=== PATIENT | male | born 1965 | race African-American/Black ===

== ENCOUNTER 2024-07-31 10:50 | Outpatient (CLI) | payer OTHER, SELFPAY ==
--- NOTE | ~2024-07-31 | US_ITS ---
EXAM: RENAL ULTRASOUND HISTORY: R79.89 - Other specified abnormal findings of blood chemistry COMPARISON: Reference is made to a CT examination of the abdomen and pelvis FINDINGS: RIGHT KIDNEY: 8.7 x 4.6 x 4.5 cm. The parenchyma of the right kidney is increased in echogenicity. No hydronephrosis or bulky renal calculi. LEFT KIDNEY: 9.3 x 6.6 x 4.8 cm No hydronephrosis or renal calculi. The lower pole calcification seen on previous CT is not present on the submitted images. The parenchyma of the left kidney is increased in echogenicity. BLADDER: Unremarkable IMPRESSION: No hydronephrosis or renal calculi. Findings suggesting medical renal disease. Reviewed, dictated and finalized at location A.
== END 2024-07-31 10:51 | disposition home or self-care (01) ==
LOC: MICIMG 10:51
PROVIDERS: PCP Family Medicine; Visit Provider Student in an Organized Health Care Education/Training Program
DX: R79.89 Other specified abnormal findings of blood chemistry (principal)
CPT/HCPCS: 76775

== ENCOUNTER 2024-10-29 11:56 | Emergency (ER) | payer OTHER, SELFPAY ==
--- NOTE | ~2024-10-29 | CT_ITS ---
EXAMINATION: CT brain wo con DATE: 10/29/2024 13:52 INDICATION: Headache TECHNIQUE: Computed tomography (CT) of the head was performed without intravenous contrast. Sagittal and coronal reconstructions were performed. The mA was adjusted according to patient size. Iterative reconstruction technique was employed. The dose-length product was 605.33 mGy-cm. COMPARISON: None FINDINGS: No acute intracranial hemorrhage, acute infarction or abnormal extra axial fluid collection. Ventricl es are normal and symmetric. No mass/mass effect. Moderate mucosal thickening and dependently layerin g mucus in the bilateral maxillary and right sphenoid sinuses. Additional mild mucoperiosteal thicken ing the bilateral ethmoid sinuses. The orbits and mastoid air cells are normal. IMPRESSION: 1. Normal brain. No acute intracranial process. 2. The callosal thickening in dependent layering mucus in the paranasal sinuses which can be seen wit h acute sinusitis. Reviewed, dictated and finalized at location A. RONMENTAL DIRECTOR IMPRESSION: 1. Normal brain. No acute intracranial process. 2. The callosal thickening in dependent layering mucus in the paranasal sinuses which can be seen with acute sinusitis.
[2024-10-29 12:24] VITALS: BP 153/80; PULSE 75; RESP 16; TEMP 36.7; O2SAT 99
[2024-10-29 13:00] VITALS: BP 155/90; PULSE 66; RESP 16; O2SAT 98
[2024-10-29 13:21] LABS: Basophils Percent Auto 0.5 % (0.2-1.2); Eosinophils Absolute Auto 0.2 K/mm3 (0-0.3); Eosinophils Percent Auto 2.9 % (0-4.4); Hemoglobin 16.1 g/dL (14.0-18.0); Immature Granulocyte Absolute 0.01 K/mm3 (0.00-0.031); Immature Granulocyte Percent A 0.2 % (0-0.5); Lymphocytes Percent Auto 35.1 % (18.3-44.2); Mean Corpuscular HGB Conc 32.9 g/dl (32-36); Mean Corpuscular Hemoglobin 29.3 pg (26-34); Mean Corpuscular Volume 89.1 fl (80-100); Mean Platelet Volume 8.8 fl (7.4-10.4); Monocytes Absolute Auto 0.6 K/mm3 (0.1-0.6); Monocytes Percent Auto 9.8 % (2.6-8.5); Neutrophils Absolute Auto 3.4 K/mm3 (1.3-6.7); Neutrophils Percent Auto 51.5 % (45.5-73.1); Platelet Count Result 362 k/mm3 (150-375); Red Cell Distribution Width 12.8 % (11.5-14.5); White Blood Count 6.6 K/mm3 (4.5-10.0)
[2024-10-29 13:32] LABS: Alanine Aminotransferase 108 U/L (6-50); Albumin Level 3.9 g/dL (3.5-5.1); Alkaline Phosphatase 161 U/L (38-126); Anion Gap 8 mmol/L (4-12); Aspartate Amino Transferase 62 U/L (17-59); Bilirubin,Total 0.6 mg/dL (0.2-1.3); Blood Urea Nitrogen 12 mg/dL (9-20); Calcium 8.9 mg/dL (8.4-10.2); Carbon Dioxide 28 mmol/L (22-30); Chloride 103 mmol/L (98-107); Estimated CRCL calculation 56 ml/min; Estimated Glomerular Filt Rate > 60; Glucose 105 mg/dL (65-110); Magnesium 1.9 mg/dL (1.6-2.3); Potassium 4.5 mmol/L (3.4-5.0); Sodium 139 mmol/L (137-145)
[2024-10-29 13:40] LABS: Prothrombin Time 13.1 Seconds (11.1-14.7)
[2024-10-29 13:41] LABS: Partial Thromboplastin Time 27.1 Seconds (22.3-36.8)
[2024-10-29 14:05] LABS: Thyroid Stimulating Hormone Reflex 0.412 uIU/mL (0.465-4.68)
--- NOTE | 2024-10-29 14:11 | ED_ITS ---
HPI - General Adult General Chief complaint: Unspecified Stated complaint: Fever, left hand swelling, headache today Time Seen by Provider: 10/29/24 12:43 History of Present Illness HPI narrative: 58-year-old male present to the emergency department for evaluation for suspected allergic reaction versus adverse reaction to to medications. Patient was started on a Z-Charlie and amlodipine. patient reports this morning he had 2 episodes of right-sided headache that did spontaneously resolve. Patient states he was also having some swelling of his hands bilaterally. Patient did report some left-handed weakness but any acidity, patient denies any other numbness or weakness. Patient denies any speech changes. Patient states all symptoms have resolved other than the hand swelling. Patient denies any chest pain or shortness of breath. Patient was well-appearing at time of evaluation. Patient denies a significant complaints and was enquiring how long his stay would have to be here. Related Data Allergies Allergy/AdvReac Type Severity Reaction Status Date / Time No Known Allergies Allergy Unverified 10/27/24 16:03 Review of Systems 2 Review of Systems: All systems reviewed & are unremarkable except as noted in HPI and below PMFSH Past Medical History Medical History (Updated 10/29/24 @ 14:17 by Harvey Lynne MD) CKD (chronic kidney disease), stage III Hypertensive CKD (chronic kidney disease) Wellness examination Other urogenital candidiasis Ureteral stone Thoracogenic scoliosis of thoracic region Sprain of groin Scrotum pain Sacroiliitis Pain in unspecified limb LLQ abdominal mass Left-sided low back pain without sciatica Elevated blood pressure reading without diagnosis of hypertension Lipid screening Candidiasis of genitalia Family History Family History Mother Family history of anemia Grandparent Diabetes mellitus, Onset Age: 69 Other Hypertension Social History Social History Social History: Smoking status: Never smoker Second hand tobacco smoke exposure: No Alcohol intake: never Substance use: never Substance use type: does not use Lack of Transportation: No Lack of Food: Never True Current Housing: I Have Housing Concerned About Future Housing: No Difficulty Paying Gas/Electric Bills: No Difficulty Paying for Meds: No Currently Unemployed: YES Education: Don't Know Difficulty w/ Childcare or Family Care: No Living arrangements: with family Occupation/Education: retired Gender identity (if verbalized by the patient): Male Sexual Orientation (if Verbalized by the Patient): Straight or Heterosexual Exam 2 Narrative: APPEARANCE: Well appearing, no pain, no distress, well-nourished. HEAD: normocephalic, atraumatic. EYES: PERRLA/EOMI, conjunctivae clear. NOSE: Normal no drainage EARS:TMS clear with good light reflex. THROAT: Pharynx clear, no exudate. NECK: Supple. No adenopathy, no masses. RESPIRATORY: Airway patent, respirations nonlabored. Clear to auscultation bilaterally, no rales, rhonchi, wheezing. CARDIOVASCULAR: Regular rate and rhythm without murmurs rubs or gallops. ABDOMINAL: Soft, nontender, nondistended, normal bowel sounds MUSCULOSKELETAL: Moves all extremities. Strength/ROM intact, No edema, No calf tenderness. NEURO: Alert. Grossly intact no focal neuro deficit SKIN: No significant swelling of hands bilaterallyPSYCHIATRIC: Normal affect/mood. Course Vital Signs Vital signs: Vital Signs Temperature 98.1 F 10/29/24 12:24 Pulse Rate 75 10/29/24 12:24 Respiratory Rate 16 10/29/24 12:24 Blood Pressure 153/80 H 10/29/24 12:24 Pulse Oximetry 99 10/29/24 12:24 Temperature 98.1 F 10/29/24 12:24 Pulse Rate 83 10/29/24 14:25 Respiratory Rate 16 10/29/24 14:25 Blood Pressure 156/91 H 10/29/24 14:25 Pulse Oximetry 98 10/29/24 14:25 Oxygen Delivery Room Air 10/29/24 13:00 Medical Decision Making [facility] Narrative Medical decision making narrative: 58-year-old male presents to the emergency department for evaluation for possible adverse reaction versus allergic reaction to his medications. Patient is currently afebrile with no leukocytosis and hemoglobin of 16.1 patient has no acute abnormalities on his CMP other than mildly elevated AST ALT and alk-phos. TSH was 0.412. Head CT was negative for any acute intracranial abnormality. Patient is at his baseline. Patient will be advised to hold those medications due to suspected adverse reactions. Patient was encouraged close follow-up with primary care physician for additional blood pressure medications. Differential Diagnosis Differential Diagnosis: Allergic reaction, adverse reaction, hypertension, CVA Vital Signs Vital Signs: Vital Signs Temperature 98.1 F 10/29/24 12:24 Pulse Rate 75 10/29/24 12:24 Respiratory Rate 16 10/29/24 12:24 Blood Pressure 153/80 H 10/29/24 12:24 Pulse Oximetry 99 10/29/24 12:24 Temperature 98.1 F 10/29/24 12:24 Pulse Rate 83 10/29/24 14:25 Respiratory Rate 16 10/29/24 14:25 Blood Pressure 156/91 H 10/29/24 14:25 Pulse Oximetry 98 10/29/24 14:25 Oxygen Delivery Room Air 10/29/24 13:00 Lab Data Lab results reviewed: Yes I reviewed the patient's lab results. 10/29/24 13:14 10/29/24 13:14 Labs: Lab Results 10/29/24 Range/Units 13:14 WBC 6.6 (4.5-10.0) K/mm3 RBC 5.50 (4.6-6.20) M/mm3 Hgb 16.1 (14.0-18.0) g/dL Hct 49.0 (42.0-52.0) % MCV 89.1 (80-100) fl MCH 29.3 (26-34) pg MCHC 32.9 (32-36) g/dl RDW 12.8 (11.5-14.5) % Plt Count 362 (150-375) k/mm3 MPV 8.8 (7.4-10.4) fl Immature Gran % (Auto) 0.2 (0-0.5) % Neut % (Auto) 51.5 (45.5-73.1) % Lymph % (Auto) 35.1 (18.3-44.2) % [place] % (Auto) 9.8 H (2.6-8.5) % Eos % (Auto) 2.9 (0-4.4) % Baso % (Auto) 0.5 (0.2-1.2) % Lymph # (Auto) 2.30 (0.9-3.2) K/mm3 [place] # (Auto) 0.6 (0.1-0.6) K/mm3 Eos # (Auto) 0.2 (0-0.3) K/mm3 Baso # (Auto) 0.0 (0.0-0.1) K/mm3 Abs Immat Gran (auto) 0.01 (0.00-0.031) K/mm3 Absolute Neuts (auto) 3.4 (1.3-6.7) K/mm3 Absolute Nucleated RBC 0.000 (0.0-0.012) K/mm3 Nucleated RBC % 0.0 (0.0-0.2) % PT 13.1 (11.1-14.7) Seconds INR 1.0 APTT 27.1 (22.3-36.8) Seconds Sodium 139 (137-145) mmol/L Potassium 4.5 (3.4-5.0) mmol/L Chloride 103 (98-107) mmol/L Carbon Dioxide 28 (22-30) mmol/L Anion Gap 8 (4-12) mmol/L BUN 12 (9-20) mg/dL Creatinine 1.30 (0.7-1.3) mg/dL Estim Creat Clear Calc 56 ml/min Estimated GFR > 60 (59 - ) Glucose 105 (65-110) mg/dL Calcium 8.9 (8.4-10.2) mg/dL Magnesium 1.9 (1.6-2.3) mg/dL Total Bilirubin 0.6 (0.2-1.3) mg/dL AST 62 H (17-59) U/L ALT 108 H (6-50) U/L Alkaline Phosphatase 161 H (38-126) U/L Total Protein 7.0 (6.3-8.2) g/dL Albumin 3.9 (3.5-5.1) g/dL TSH (Reflex) 0.412 L (0.465-4.68) uIU/mL Free T4 0.99 (0.78-2.19) ng/dL Total T3 1.73 H (0.97-1.69) NG/ML Imaging Data Radiologist's impression: Impressions Head CT 10/29/24 13:59 IMPRESSION: 1. Normal brain. No acute intracranial process. 2. The callosal thickening in dependent layering mucus in the paranasal sinuses which can be seen with acute sinusitis. Discharge Plan Discharge Clinical Impression: Adverse drug reaction Patient Disposition: Home, Self-Care Condition: Stable Instructions: Antibiotic Form, General Allergic Reaction (ED) Additional Instructions: Stop taking the amlodipine and Z-Charlie. Have close follow-up with primary care physician. If you have any worsening symptoms then please call or return to the emergency department. Patient Language: Guamanian Prescriptions: No Action azithromycin 250 mg tablet See Rx Instructions PO .COMPLEX 5 Days Qty: 6 0RF Rx Instructions: take 500 mg today (day 1), then 250 mg for 4 days (days 2-5) PO amlodipine 5 mg tablet 5 mg PO DAILY Qty: 90 1RF Follow-up/Referrals: Rohan Gruber MD [Primary Care Provider] -
[2024-10-29 14:25] VITALS: BP 156/91; PULSE 83; RESP 16; O2SAT 98
[2024-10-29 16:38] LABS: Free T4 Free Thyroxine Reflex 0.99 ng/dL (0.78-2.19)
[2024-10-29 18:14] LABS: Total Triiodothyronine (T3) 1.73 NG/ML (0.97-1.69)
--- OUTSIDE RECORDS SUMMARY | 2024-10-31 00:10 | XMS_ITS | Referral Summary ---
Author Organization [facility] Address [address] [place] [address] Care Team Providers Care Oil Well Cable Tool Operator Name Role Phone Tayla Holt MD Primary Care Provider Carlin aleman Source Comments [facility],non-owned Affiliates and Associated Physician Practices is amultiple site organization consisting of ambulatory clinics and hospital sitesin [place], [place], [place] and [place]. This disclosure is being madepursuant to the Care Everywhere program and may not contain all information available regarding this patient. Last updated 18.[facility] Allergies No known active allergies Medications * Be aware that medications may not be up to date on this document. Alwaysverify current medications with the patient. Medication Sig Dispensed Refills Start Date End Date Status cyclobenzaprine (FLEXERIL) 10 MG tablet Take 1 Tab by mouth 3 times daily as needed for Muscle Spasms 10 Tab 0 10/04/2015 Active hydrocodone-acetaminop hen (NORCO) 5-325 MG tablet Take 1 Tab by mouth every 4 hours as needed for Pain 20 Tab 0 10/04/2015 Active Social History Tobacco Use Types Packs/Day Years Used Date Smoking Tobacco: Never Assessed Sex and Gender Information Value Date Recorded Sex Assigned at Not on file Gender Identity Not on file Sexual Orientation Not on file Last Filed Vital Signs Vital Sign Reading Time Taken Comments Blood Pressure 124/66 10/04/2015 9:35 PM ETL DATA ARCHITECT Pulse 77 10/04/2015 6:12 PM ETL DATA ARCHITECT Temperature 36.9 ??C (98.4 ??F) 10/04/2015 6:12 PM CS T Respiratory Rate 17 10/04/2015 6:12 PM ETL DATA ARCHITECT Oxygen Saturation 95% 10/04/2015 9:36 PM ETL DATA ARCHITECT Inhaled Oxygen Concentration - - Weight 79.4 kg (175 lb) 10/04/2015 6:12 PM ETL DATA ARCHITECT Height 165.1 cm (5' 5 ) 10/04/2015 6:12 PM ETL DATA ARCHITECT Body Mass Index 29.12 10/04/2015 6:12 PM ETL DATA ARCHITECT Plan of Treatment Not on file Care Teams Oil Well Cable Tool Operator Relationship Specialty Start Date End Date Tayla Holt MD [address] [place] [address] PCP - General Family Medicine 10/04/15
--- OUTSIDE RECORDS SUMMARY | 2024-10-31 00:10 | XMS_ITS | Patient Health Summary ---
Author Organization [facility] Address [address] [place] [address] Care Team Providers Care Seam Sewer Name Role Phone Tayla Holt MD Primary Care Provider Carlin aleman Note from [facility],non-owned Affiliates and Associated Physician Practices is amultiple site organization consisting of ambulatory clinics and hospital sitesin [place], [place], [place] and [place]. This disclosure is being madepursuant to the Care Everywhere program and may not contain all information available regarding this patient. Last updated 18.[facility] Allergies No known active allergies Medications * Be aware that medications may not be up to date on this document. Alwaysverify current medications with the patient. * cyclobenzaprine (FLEXERIL) 10 MG tablet(Started 10/04/2015) Take 1 Tab by mouth 3 times daily as needed for Muscle Spasms * hydrocodone-acetaminophen (NORCO) 5-325 MG tablet(Started 10/04/2015) Take 1 Tab by mouth every 4 hours as needed for Pain Social History Tobacco Use Types Packs/Day Years Used Date Smoking Tobacco: Never Assessed Sex and Gender Information Value Date Recorded Sex Assigned at Not on file Gender Identity Not on file Sexual Orientation Not on file Last Filed Vital Signs Vital Sign Reading Time Taken Comments Blood Pressure 124/66 10/04/2015 9:35 PM EEG TECHNICIAN Pulse 77 10/04/2015 6:12 PM EEG TECHNICIAN Temperature 36.9 ??C (98.4 ??F) 10/04/2015 6:12 PM CS T Respiratory Rate 17 10/04/2015 6:12 PM EEG TECHNICIAN Oxygen Saturation 95% 10/04/2015 9:36 PM EEG TECHNICIAN Inhaled Oxygen Concentration - - Weight 79.4 kg (175 lb) 10/04/2015 6:12 PM EEG TECHNICIAN Height 165.1 cm (5' 5 ) 10/04/2015 6:12 PM EEG TECHNICIAN Body Mass Index 29.12 10/04/2015 6:12 PM EEG TECHNICIAN Procedures * CT ABDOMEN PELVIS W CONTRAST(Performed 10/04/2015) Performed for Left flank pain * URINALYSIS REFLEX MICROSCOPIC REFLEX CULTURE(Performed 10/04/2015) * LIPASE BLOOD(Performed 10/04/2015) * COMPREHENSIVE METABOLIC PANEL(Performed 10/04/2015) * CBC W AUTO DIFFERENTIAL(Performed 10/04/2015) Results * CT ABDOMEN AND PELVIS WITH IV CONTRAST (10/04/2015 9:41 PM EEG TECHNICIAN) Anatomical Region Laterality Modality Abdomen, Pelvis Computed Tomogra phy 10/04/2015 10:0 6 PM EEG TECHNICIAN Impressions 10/04/2015 10:09 PM EEG TECHNICIAN No bowel or urinary obstruction. Nonspecific finding of prominence to the seminal vesicles possibly related to post inflammatory or obstructive cystic distention. Narrative 10/04/2015 10:[address] Abdomen With Contrast CT Pelvis With Contrast Clinical Indication: Generalized lower bowel pain radiating to the left flank, urinary frequency Technique: Axial CT images from the lung bases through the pubic symphysis were obtained following intravenous administration of Omnipaque 350 80 cc Findings: The lung bases are clear. No calcified gallstones. No gallbladder wall thickening. No intrahepatic biliary ductal dilatation. The spleen is not enlarged. The adrenal glands are normal in size. No peripancreatic inflammatory changes. The kidneys enhance symmetrically. There is no hydronephrosis or hydroureter. No cortical perfusion abnormality. No ureteral calculus. There is no small bowel transition zone. Normal appearance of the appendix. No free fluid. In the pelvis, prominence to the seminal vesicles. The bladder wall is not thickened. No inguinal, iliac, or retroperitoneal adenopathy. No distention of the aorta. Reconstructed views shows no spine malalignment or vertebral compression deformity. Procedure Note Margarito Noyola MD - 10/04/[address] With Cont[address] CT Pelvis With Contrast Clinical Indication: Generalized lower bowel pain radiating to the left flank, urinary frequency Technique: Axial CT images from the lung bases through the pubic symphysis were obtained following intravenous administration of Omnipaque 350 80 cc Findings: The lung bases are clear. No calcified gallstones. No gallbladder wall thickening. No intrahepatic biliary ductal dilatation. The spleen is not enlarged. The adrenal glands are normal in size. No peripancreatic inflammatory changes. The kidneys enhance symmetrically. There is no hydronephrosis or hydroureter. No cortical perfusion abnormality. No ureteral calculus. There is no small bowel transition zone. Normal appearance of the appendix. No free fluid. In the pelvis, prominence to the seminal vesicles. The bladder wall is not thickened. No inguinal, iliac, or retroperitoneal adenopathy. No distention of the aorta. Reconstructed views shows no spine malalignment or vertebral compression deformity. IMPRESSION No bowel or urinary obstruction. Nonspecific finding of prominence to the seminal vesicles possibly related to post inflammatory or obstructive cystic distention. Lai Cherry DO CT ORDERABLES * URINALYSIS ROUTINE W/REFLEX TO CULTURE (10/04/2015 8:08 PM EEG TECHNICIAN) Color UA Yellow Straw, Yellow, Dark Yellow 10/04/2015 8:16 PM EEG TECHNICIAN [facility] Clarity UA Cloudy 10/04/2015 8:16 PM EEG TECHNICIAN [facility] Specific [place]es UA 1.028 1.005 - 1.030 10/04/2015 8:16 PM [facility] pH UA 5.5 5.0 - 8.0 pH 10/04/2015 8:16 PM [facility] Protein UA Negative Negative 10/04/2015 8:16 PM [facility] Blood UA Negative Negative 10/04/2015 8:16 PM [facility] Leukocyte UA Negative Negative 10/04/2015 8:16 PM [facility] Nitrite UA Negative Negative 10/04/2015 8:16 PM [facility] Glucose UA Negative Negative 10/04/2015 8:16 PM EEG TECHNICIAN [facility] Ketone UA Negative Negative 10/04/2015 8:16 PM EEG TECHNICIAN [facility] Bilirubin UA Negative Negative 10/04/2015 8:16 PM [facility] Urobilinogen UA 0.2 0.1 - 1.0 EU/dL 10/04/2015 8:16 PM [facility] Reflex Status Culture not indicated 10/04/2015 8:16 PM [facility] Urine URINE SPECIMEN OBTAINED BY CLEAN CATCH PROCEDURE / Unknown 10/04/2015 8:08 PM EEG TECHNICIAN 10/04/2015 8:12 PM EEG TECHNICIAN Lai Cherry DO LAB - URINALYSIS O RDERABLES [facility] [address] [place] [address] * (ABNORMAL) CBC W AUTO DIFFERENTIAL (10/04/2015 8:04 PM EEG TECHNICIAN) WBC 7.4 4.4 - 10.7 x10^9/L 10/04/2015 8:11 PM [facility] WBC Corrected x10^9/L 10/04/2015 8:11 PM [facility] RBC 5.67(H) 3.80 - 5.40 x10^12/L 10/04/2015 8:11 PM [facility] Hemoglobin 16.3 12.0 - 17.6 gm/dL 10/04/2015 8:11 PM [facility] Hematocrit 48.6 35.2 - 51.7 % 10/04/2015 8:11 PM [facility] MCV 85.7 80.7 - 98.3 fl 10/04/2015 8:11 PM [facility] MCH 28.7 26.7 - 34.0 pg 10/04/2015 8:11 PM [facility] MCHC 33.5 30.8 - 35.9 gm/dL 10/04/2015 8:11 PM [facility] Platelet Count 320 153 - 416 x10^9/L 10/04/2015 8:11 PM [facility] RDW-CV 12.8 12.1 - 14.9 % 10/04/2015 8:11 PM [facility] MPV 9.0(L) 9.4 - 12.9 fl 10/04/2015 8:11 PM [facility] Neutrophils % 45.7 44.0 - 73.0 % 10/04/2015 8:11 PM [facility] Lymphocytes % 42.6 20.0 - 43.0 % 10/04/2015 8:11 PM [facility] Monocytes % 9.1 5.0 - 13.0 % 10/04/2015 8:11 PM [facility] Eosinophils % 1.8 0.0 - 6.0 % 10/04/2015 8:11 PM [facility] Basophils % 0.7 0.0 - 2.0 % 10/04/2015 8:11 PM [facility] Immature Granulocytes 0.1 0 - 1 % 10/04/2015 8:11 PM [facility] Neutrophil Absolute 3.36 2.01 - 7.14 x10^9/L 10/04/2015 8:11 PM [facility] Lymphocytes Absolute 3.13 1.07 - 3.94 x10^9/L 10/04/2015 8:11 PM [facility] Monocytes Absolute 0.67 0.26 - 1.07 x10^9/L 10/04/2015 8:11 PM [facility] Eosinophils Absolute 0.13 0 - 0.47 x10^9/L 10/04/2015 8:11 PM [facility] Basophils Absolute 0.05 0 - 0.08 x10^9/L 10/04/2015 8:11 PM [facility] Immature Granulocytes Absolute 0.01 0.00 - 0.06 x10^9/L 10/04/2015 8:11 PM [facility] nRBC Auto 0 /100 WBC 10/04/2015 8:11 PM [facility] Blood BLOOD SPECIMEN / Unknown 10/04/2015 8:04 PM EEG TECHNICIAN 10/04/2015 8:07 PM EEG TECHNICIAN Lai Cherry DO LAB - HEMATOLOGY O RDERABLES [facility] [address] [place] [address] * (ABNORMAL) COMPREHENSIVE METABOLIC PANEL (10/04/2015 8:04 PM EEG TECHNICIAN) [facility] Glucose 95 74 - 106 mg/dL 10/04/2015 8:25 PM [facility] Sodium 139 136 - 145 mmol/L 10/04/2015 8:25 PM [facility] Potassium 4.3 3.5 - 5.1 mmol/L 10/04/2015 8:25 PM [facility] Chloride 104 98 - 107 mmol/L 10/04/2015 8:25 PM [facility] CO2 28 22 - 31 mmol/L 10/04/2015 8:25 PM [facility] Calcium 9.3 8.5 - 10.1 mg/dL 10/04/2015 8:25 PM [facility] Anion Gap 7 5 - 20 mmol/L 10/04/2015 8:25 PM [facility] BUN 18 7 - 21 mg/dL 10/04/2015 8:25 PM [facility] Creatinine 1.40(H) 0.50 - 1.30 mg/dL 10/04/2015 8:25 PM [facility] Alkaline Phosphatase 111 38 - 126 U/L 10/04/2015 8:25 PM [facility] ALT 51 12 - 78 U/L 10/04/2015 8:25 PM [facility] AST 17 5 - 40 U/L 10/04/2015 8:25 PM [facility] Protein Total 7.6 6.4 - 8.2 gm/dL 10/04/2015 8:25 PM [facility] Albumin 3.9 3.4 - 5.0 gm/dL 10/04/2015 8:25 PM [facility] Bilirubin Total 0.9 0.2 - 1.0 mg/dL 10/04/2015 8:25 PM [facility] eGFR by MDRD 54(L) >60 mL/min/1.7 3m2 10/04/2015 8:25 PM [facility] eGFR by MDRD >60 >60 mL/min/1.7 3m2 10/04/2015 8:25 PM [facility] Blood BLOOD SPECIMEN / Unknown 10/04/2015 8:04 PM EEG TECHNICIAN 10/04/2015 8:07 PM EEG TECHNICIAN Lai Cherry DO LAB - CHEMISTRY OR DERABLES [facility] [address] [place] [address] * LIPASE BLOOD (10/04/2015 8:04 PM EEG TECHNICIAN) Lipase 78 10 - 220 U/L 10/04/2015 8:25 PM [facility] Blood BLOOD SPECIMEN / Unknown 10/04/2015 8:04 PM EEG TECHNICIAN 10/04/2015 8:07 PM EEG TECHNICIAN Lai Cherry DO LAB - CHEMISTRY OR DERABLES [facility] [address] [place] [address] Care Teams Seam Sewer Relationship Specialty Start Date End Date Tayla Holt MD [address] [place] [address] PCP - General Family Medicine 10/04/15
--- OUTSIDE RECORDS SUMMARY | 2024-10-31 00:10 | XMS_ITS | Continuity of Care Document ---
Author Organization [facility] (formerly [facility]) Address [address] [place] [address] Phone Care Team Providers Care Bookmaker'S Clerk Name Role Phone Zari Robles MD Unavailable Unavailabl e Allergies, Adverse Reactions, Alerts Substance Reaction Status Criticality No Known Drug Allergies Other Active No I nformation Results Test Name Date and Time Measure Units Reference Range Abnormal Flag Status Comments Panel Description: CBC w/diff Unknown WHITE BLOOD CELL COUNT 00:00:00 6.5 THOUS/MCL N Unknown RED BLOOD CELL COUNT 00:00:00 5.14 MILL/MCL N Unknown HEMOGLOBIN 00:00:00 15.0 G/DL N Unknown HEMATOCRIT 00:00:00 44.3 % N Unknown MCV 00:00:00 86.0 FL N Unknown MCH 00:00:00 29.1 PG N Unknown MCHC 00:00:00 33.8 G/DL N Unknown RDW 00:00:00 14.0 % N Unknown PLATELET COUNT 00:00:00 323 THOUS/MCL N Unknown NEUTROPHILS 00:00:00 50.2 % N Unknown ABSOLUTE NEUTROPHILS 00:00:00 3263 CELLS/MCL N Unknown LYMPHOCYTES 00:00:00 39.8 % N Unknown MONOCYTES 00:00:00 8.7 % N Unknown ABSOLUTE MONOCYTES 00:00:00 566 CELLS/MCL N Unknown EOSINOPHILS 00:00:00 0.8 % N Unknown ABSOLUTE EOSINOPHILS 00:00:00 52 CELLS/MCL N Unknown BASOPHILS 00:00:00 0.5 % N Unknown ABSOLUTE BASOPHILS 00:00:00 33 CELLS/MCL N Unknown ABSOLUTE LYMPHOCYTES 00:00:00 2587 CELLS/MCL N Unknown Panel Description: CMP Unknown SODIUM 00:00:00 141 MMOL/L N Unknown POTASSIUM 00:00:00 4.4 MMOL/L N Unknown CHLORIDE 00:00:00 104 MMOL/L N Unknown CARBON DIOXIDE 00:00:00 27 MMOL/L N Unknown GLUCOSE 00:00:00 79 MG/DL N Unknown UREA NITROGEN (BUN) 00:00:00 12 MG/DL N Unknown CREATININE 00:00:00 1.6 MG/DL H Unknown BUN/CREATININE RATIO 00:00:00 8 (CALC) N Unknown CALCIUM 00:00:00 9.7 MG/DL N Unknown PROTEIN, TOTAL 00:00:00 7.7 G/DL N Unknown ALBUMIN 00:00:00 4.5 G/DL N Unknown GLOBULIN 00:00:00 3.2 G/DL (CALC) N Unknown ALBUMIN/GLOBULIN RATIO 00:00:00 1.4 (CALC) N Unknown BILIRUBIN, TOTAL 00:00:00 1.2 MG/DL N Unknown ALKALINE PHOSPHATASE 00:00:00 116 U/L N Unknown AST 00:00:00 33 U/L N Unknown ALT 00:00:00 68 U/L H Unknown Panel Description: Lipid Panel And Chol/HDL Rati o Unknown CHOLESTEROL, TOTAL 00:00:00 195 MG/DL N Unknown TRIGLYCERIDES 00:00:00 61 MG/DL N Unknown HDL CHOLESTEROL 00:00:00 48 MG/DL N Unknown CHOL/HDLC RATIO 00:00:00 4.1 (CALC) N Unknown LDL-CHOLESTEROL 00:00:00 135 MG/DL (CALC) H Unknown Advance Directives Directive Yes / No Effective Date File Name No Information Encounters Encounter Description Practice Location Reason(s) For Visit Diagnoses Date Provider Providers Copied on Encounter [facility] ([facility] [address], [place], [place], [id number], [place] tel:[phone] Roger SCREEN LIPOID DISORDERSSPRAIN NOSROUTINE MEDICAL EXAMTUBERCULOSIS CONTACTSOFT TISSUE DIS NEC/NOSVACCINATIO N FOR TD-DT 3-[address] [place], [place], [id number]. tel:[phone] Family History Family Member Type Diagnosis Age At Onset No Information Immunizations Vaccine Date Status Comments 11794 - TD administered Source: Source Unspecified Payers Payer name Insurance type Covered democrat ID Authoriza tion(s) No Information Social History Type Description Quantity Date Captured Comments Sex Male Smoking Status No Information Chief Complaint And Reason For Visit No Information Reason For Referral Reason For Referral No Information History Of Present Illness Encounter Date Complaint History Of Prese nt Illness No Information Functional Status Date Functional Assessmen t No Information Instructions Date Instruction Additional Infor mation No Information Assessments Type Assessment Date No Information Patient Care Teams Name Effective Dates (start - stop) Status Members No Information
--- OUTSIDE RECORDS SUMMARY | 2024-10-31 00:10 | XMS_ITS | Clinical Summary ---
Author Organization [facility] Address [address] [place] [address] Care Team Providers Care Supervisor Orchard Name Role Phone Tayla Holt MD Primary Care Provider Carlin aleman Source Comments [facility],non-owned Affiliates and Associated Physician Practices is amultiple site organization consisting of ambulatory clinics and hospital sitesin [place], [place], [place] and [place]. This disclosure is being madepursuant to the Care Everywhere program and may not contain all information available regarding this patient. Last updated 18.[facility] Allergies No known active allergies Medications * [...] Comments Blood Pressure 124/66 10/04/2015 9:35 PM DOBIE WORKER Pulse 77 10/04/2015 6:12 PM DOBIE WORKER Temperature 36.9 ??C (98.4 ??F) 10/04/2015 6:12 PM CS T Respiratory Rate 17 10/04/2015 6:12 PM DOBIE WORKER Oxygen Saturation 95% 10/04/2015 9:36 PM DOBIE WORKER Inhaled Oxygen Concentration - - Weight 79.4 kg (175 lb) 10/04/2015 6:12 PM DOBIE WORKER Height 165.1 cm (5' 5 ) 10/04/2015 6:12 PM DOBIE WORKER Body Mass Index 29.12 10/04/2015 6:12 PM DOBIE WORKER Plan of Treatment Health Maintenance Due Date Last Done Comments COLOGUARD (AGES 45-75) - COL ON CA SCREENING 1965 COLON MONITORING 1965 COLONOSCOPY - COLON CA SCREENING 1965 CT COLONOGRAPHY - COLON CA SCREENING 1965 Colorectal Cancer Screening 1965 FIT - COLON CA SCREENING 1965 FLEX SIG - COLON CA SCREENING 1965 LIPID TESTING 1965 HIV SCREENING 1980 HEPATITIS C SCREENING 12/15/1983 DTAP/TDAP/TD VACCINES (1 - Tdap) 1984 HEPATITIS B VACCINE (1 of 3 - 19+ 3-dose series) 1984 PNEUMOCOCCAL VACCINE 50+ (1 of 1 - PCV) 12/20/2015 ZOSTER VACCINE (1 of 2) 12/20/2015 COVID-19 VACCINE (1 - 2023-2 5 season) 2024 INFLUENZA VACCINE (#1) 2024 DEPRESSION SCREENING 10/08/2024 HIB VACCINE Aged Out No longer eligi ble based on patient's age to complete this topic HPV VACCINE Aged Out No longer eligi ble based on patient's age to complete this topic MENINGOCOCCAL (Group B) VACCINE Aged Out No longer eligible based on patient's age to complete this topic MENINGOCOCCAL VACCINE Aged Out No jan eloina eligible based on patient's age to complete this topic PNEUMOCOCCAL VACCINE Aged Out No long er eligible based on patient's age to complete this topic Care Teams Supervisor Orchard Relationship Specialty Start Date End Date Tayla Holt MD [address] [place] [address] PCP - General Family Medicine 10/04/15
--- OUTSIDE RECORDS SUMMARY | 2024-10-31 00:10 | XMS_ITS | Clinical Summary ---
Author Organization [facility] Address [facility] [facility]. [place], [place] [address] [place] [address] Care Team Providers Care Improvement Advisor Name Role Phone Tayla Holt MD Primary Care Provider [phone] Social History Tobacco Use Types Packs/Day Years Used Date Smoking Tobacco: Never Assessed Sex and Gender Information Value Date Recorded Sex Assigned at Not on file Legal Sex Male 6:43 PM CDT Gender Identity Not on file Sexual Orientation Not on file Plan of Treatment Health Maintenance Due Date Last Done Comments Colorectal Cancer Screening Colonoscopy (10 Years) 1965 Annual Physical 1968 Hepatitis C 12/20/1983 DTaP, Tdap and Td Vaccines ( 1 - Tdap) 1984 Hepatitis B Vaccines (1 of 3 - 19+ 3-dose series) 1984 Zoster Vaccines (1 of 2) 12/20/2015 COVID-19 Vaccine ( - 2023-2 5 season) 2024 Influenza Adult (#1) 2024 Meningococcal Vaccine Aged Out No jan eloina eligible based on patient's age to complete this topic Pneumococcal Vaccine: Pediat rics (0 to 5 Years) and At-Risk Patients (6 to 64 Years) Aged Out No longer eligible b ased on patient's age to complete this topic RSV Immunizations Under 20 Months Aged Out No longer eligible based on patient's age to complete this topic Care Teams Improvement Advisor Relationship Specialty Start Date End Date Tayla Holt MD [address] [facility] [address] [place] [address] PCP - General 11/05/13
== END 2024-10-29 14:27 | disposition home or self-care (01) ==
PROVIDERS: Emergency Provider Emergency Medicine; PCP Family Medicine
DX: R51.9 Headache, unspecified (principal); R22.33 Localized swelling, mass and lump, upper limb, bilateral; T46.1X5A Adverse effect of calcium-channel blockers, initial encounter; T36.3X5A Adverse effect of macrolides, initial encounter; I12.9 Hypertensive chronic kidney disease with stage 1 through stage 4 chronic kidney disease, or unspecified chronic kidney disease; N18.30 Chronic kidney disease, stage 3 unspecified; Z87.442 Personal history of urinary calculi; R93.0 Abnormal findings on diagnostic imaging of skull and head, not elsewhere classified
CPT/HCPCS: 36415; 70450; 80053; 83735; 84439; 84443; 84480; 85025; 85610; 85730; 99284